=== PATIENT | female | born 1940 | race Caucasian/White ===

== ENCOUNTER 2016-12-26 18:18 | Observation (INO) ==
--- NOTE | 2016-12-26 18:39 | Emergency Department Note ---
Disposition Clinical Impression: Left-sided weakness, TIA (transient ischemic attack), Headache Disposition: Admitted As Inpatient Condition: Fair Referrals: Iliana Hall, [facility] [Primary Care Provider] - Forms: ED Satisfaction Letter Time of Disposition: 20:16 (obsv latoya) Headache HPI - General Chief Complaint: ED Dizziness Stated Complaint: Posterior headache, numbness, dizziness Time Seen by Provider: 12/26/16 18:28 Source: patient Mode of arrival: ambulatory Limitations: no limitations Nursing Notes Reviewed: Yes Vital Signs Reviewed: Yes - History of Present Illness Pt Subjective Complaint: headache Onset (ago): day(s) (3) Onset description: gradual Location: occipital Pain Severity: moderate Pain Scale: 5 Quality: aching Improves with: nothing Worsens with: none Context: occurred with exertion/activity Associated symptoms: Reports: malaise, tingling, numbness, weakness. Denies: chest pain, cough, diaphoresis, fever, nausea, vomiting, neck stiffness, photophobia, phonophobia, seizure, eye pain/redness, syncope, vision changes, SOB, confusion Treatments prior to arrival: none - Related Data Home Medications Medication Instructions Recorded Confirmed Cholecalciferol (Vitamin D3) 1,000 unit PO DAILY 02/27/16 12/26/16 [Vitamin D3] [place]-3/Dha/Epa/Fish Oil [Fish Oil 1,000 mg PO DAILY 02/27/16 12/26/16 Dr 500 mg Softgel] Ranitidine HCl [Heartburn Relief] 150 mg PO BID 02/27/16 12/26/16 Riboflavin [Vitamin B-2] 100 mg PO DAILY 02/27/16 12/26/16 Metoprolol [Lopressor] 25 mg PO DAILY 12/26/16 12/26/16 Allergies Allergy/AdvReac Type Severity Reaction Status Date / Time nitrofurantoin AdvReac Cramping Verified 12/26/16 17:23 of the Muscles pseudoephedrine AdvReac Cramping Verified 12/26/16 17:23 [From Sudafed] of the Muscles red dye AdvReac Hives Verified 12/26/16 17:23 All systems ED: reviewed and negative except as stated. Constitutional: Denies: fever, chills, weakness Eyes: Denies: eye pain ENT ED: Denies: ear pain, throat pain Cardiovascular: Denies: chest pain, palpitations, dyspnea on exertion Respiratory: Denies: cough, dyspnea, wheezes Gastrointestinal: Denies: abdominal pain, nausea, vomiting Genitourinary: Denies: urgency, dysuria, frequency Musculoskeletal: Reports: arthralgia Integumentary: Denies: rash, abrasion, lesions Neurological: Reports: headache, weakness, abnormal gait Psychiatric: Denies: anxiety Endocrine: Reports: fatigue Hematological/Lymphatic: Denies: easy bleeding Allergic/Immunologic: Denies: facial swelling Headache PMH - Past Medical History Medical history: Reports: non-contributory Female Surgical History: Reports: cholecystectomy, hysterectomy Psychiatric history: Reports: no psych history - Social History Smoking Status: Smoker, status unknown Alcohol use: Reports: none Drug use: Reports: none Physical Exam - General Limitations: no limitations General appearance: alert, in no apparent distress, other (emotional) - Head Head exam: atraumatic, normocephalic, normal inspection - Eye Eye exam: Present: normal appearance, PERRL, EOMI - ENT ENT exam: normal exam, normal oropharynx, mucous membranes moist, TM's normal bilaterally, normal external ear exam - Neck Neck exam: Present: normal inspection, full ROM, trachea midline - Chest Chest inspection: Present: normal inspection, symmetric chest wall rise - Respiratory Respiratory exam: Present: normal lung sounds bilaterally, respiratory distress - Cardiovascular Cardiovascular exam: Present: regular rate, normal rhythm, normal heart sounds - Abdominal Exam Abdominal exam: Present: soft, Non-Tender, normal bowel sounds - Extremities Exam Extremities exam: Present: normal inspection, full ROM, normal capillary refill. Absent: tenderness, joint swelling - Expanded Upper Extremity Exam Shoulder exam: Present: normal inspection, full ROM Arm exam: Present: normal inspection, full ROM Elbow exam: Present: normal inspection, full ROM Forearm/Wrist exam: Present: normal inspection, full ROM Hand exam: Present: normal inspection, full ROM Vascular exam: Normal: capillary refill, radial pulse - Expanded Lower Extremity Exam Hip/Pelvis exam: Present: normal inspection, full ROM Upper leg exam: Present: normal inspection, full ROM Knee exam: Present: normal inspection, full ROM Lower leg exam: Present: normal inspection, full ROM Ankle exam: Present: normal inspection, full ROM Foot/toe exam: Present: normal inspection, full ROM Neurovascular/Tendon exam: Present: normal capillary refill, normal fine/light touch. Absent: motor deficit, sensory deficit, tendon deficit Gait: observed and normal - Back Exam Back exam: Present: normal inspection, full ROM. Absent: muscle spasm - Neurological Exam Neurological exam: Present: alert, oriented X3, CN II-XII intact - Psychiatric Psychiatric exam: Present: normal affect, normal mood - Skin Skin exam: Present: warm, dry, intact, normal color Course Course Narrative: Seen and examined taken directly over for CAT scan upon completion of the CAT scan patient had labs and EKG done with all results having been obtained I sat and spoke with the family about the findings at this time she will stroke evidence and spoken with the radiologist shows chronic changes as result patient will be admitted transferred to [facility] stable condition Vital Signs Temperature 97 F L 12/26/16 18:23 Pulse Rate 67 12/26/16 18:23 Respiratory Rate 18 12/26/16 18:23 Blood Pressure 182/88 12/26/16 18:23 O2 Sat by Pulse Oximetry 98 12/26/16 18:23 Temperature 97 F L 12/26/16 19:18 Pulse Rate 64 12/26/16 19:18 Respiratory Rate 18 12/26/16 19:18 Blood Pressure 162/88 12/26/16 19:18 O2 Sat by Pulse Oximetry 96 12/26/16 19:18 Oxygen Delivery Oxygen Delivery Room Air Headache - MDM Narrative Medical decision making narrative: Possibility TIA versus CVA versus cardiac event - Differential Diagnosis Differential Diagnosis: Likely: headache - Medical Records Medical records reviewed: Yes I reviewed the patient's medical records. - Lab Data Lab results reviewed: Yes I reviewed the patient's lab results. Result diagrams: 12/26/16 18:59 12/26/16 18:59 Lab Results 12/26/16 12/26/16 12/26/16 Range/Units 18:59 18:59 18:59 WBC 6.9 (4.3-11.1) K/mcL RBC 4.26 (3.82-4.97) M/mcL Hgb 13.7 (11.5-15.4) g/dL Hct 39.7 (35.3-44.9) % MCV 93.2 (83.0-100.0) fL MCH 32.2 (28.0-33.3) pg MCHC 34.5 (31.6-35.5) g/dL RDW 13.2 (11.5-14.5) % Plt Count 208 (140-400) K/mcL MPV 9.8 (9.4-12.4) fL Immature Gran % 0.1 (0-4) % Seg Neutrophils % 50.7 % Lymphocytes % 41.6 % Monocytes % 5.5 % Eosinophils % 1.8 % Basophils % 0.3 % Neutrophils # 3.5 (1.6-8.9) K/mcL Lymphocytes # 2.9 (0.6-4.6) K/mcL Monocytes # 0.4 (0.0-1.3) K/mcL Eosinophils # 0.1 (0.0-0.6) K/mcL Basophils # 0.0 (0.0-0.2) K/mcL PT 11.0 (9.4-12.1) Seconds INR 1.0 APTT 30.1 (26.0-36.0) Seconds Sodium 138 (136-145) mEq/L Potassium 3.9 (3.5-4.5) mEq/L Chloride 100 (98-109) mEq/L Carbon Dioxide 27 (19-29) mEq/L BUN 13 (7-20) mg/dL Creatinine 0.80 (0.57-1.11) mg/dL Est GFR ( Amer) > 60 (> 60) Est GFR (Non-Af Amer) > 60 (> 60) BUN/Creatinine Ratio 16 (6-26) Glucose 93 (70-99) mg/dL Calculated Osmolality 286 (280-300) Calcium 10.3 (8.6-10.8) mg/dL Troponin I (0-0.03) ng/mL 12/26/16 Range/Units 18:59 WBC (4.3-11.1) K/mcL RBC (3.82-4.97) M/mcL Hgb (11.5-15.4) g/dL Hct (35.3-44.9) % MCV (83.0-100.0) fL MCH (28.0-33.3) pg MCHC (31.6-35.5) g/dL RDW (11.5-14.5) % Plt Count (140-400) K/mcL MPV (9.4-12.4) fL Immature Gran % (0-4) % Seg Neutrophils % % Lymphocytes % % Monocytes % % Eosinophils % % Basophils % % Neutrophils # (1.6-8.9) K/mcL Lymphocytes # (0.6-4.6) K/mcL Monocytes # (0.0-1.3) K/mcL Eosinophils # (0.0-0.6) K/mcL Basophils # (0.0-0.2) K/mcL PT (9.4-12.1) Seconds INR APTT (26.0-36.0) Seconds Sodium (136-145) mEq/L Potassium (3.5-4.5) mEq/L Chloride (98-109) mEq/L Carbon Dioxide (19-29) mEq/L BUN (7-20) mg/dL Creatinine (0.57-1.11) mg/dL Est GFR ( Amer) (> 60) Est GFR (Non-Af Amer) (> 60) BUN/Creatinine Ratio (6-26) Glucose (70-99) mg/dL Calculated Osmolality (280-300) Calcium (8.6-10.8) mg/dL Troponin I 0.03 (0-0.03) ng/mL - Radiology Data Radiology results reviewed: Yes I reviewed the patient's radiology results. ITS Impressions Chest X-Ray 12/26/16 18:35 IMPRESSION: No acute cardiopulmonary disease. D/ / 12/26/2016 18:56:38 Al Sanchez MD / Brianne Figueredo Interpreting Provider: Al Sanchez MD Head CT 12/26/16 18:35 IMPRESSION: No acute intracranial abnormality. D/ / 12/26/2016 18:57:49 Al Sanchez MD / Brianne Figueredo Interpreting Provider: Al Sanchez MD - EKG Data EKG attestation: Yes I reviewed and interpreted this EKG. EKG results narrative: Normal sinus rhythm rate 66 ME 174 QRS 89 QT 375 axes -15 Critical Care Time Critical Care Time: No
[2016-12-26 19:06] LABS: Basophils % 0.3 %; Eosinophils # 0.1 K/mcL (0.0-0.6); Eosinophils % 1.8 %; Hematocrit 39.7 % (35.3-44.9); Hemoglobin 13.7 g/dL (11.5-15.4); Immature Granulocytes % 0.1 % (0-4); Lymphocytes # 2.9 K/mcL (0.6-4.6); Lymphocytes % 41.6 %; Mean Corpuscular HGB Conc 34.5 g/dL (31.6-35.5); Mean Corpuscular Hemoglobin 32.2 pg (28.0-33.3); Mean Corpuscular Volume 93.2 fL (83.0-100.0); Mean Platelet Volume 9.8 fL (9.4-12.4); Monocytes # 0.4 K/mcL (0.0-1.3); Monocytes % 5.5 %; Neutrophils # 3.5 K/mcL (1.6-8.9); Platelet Count 208 K/mcL (140-400); Red Blood Count 4.26 M/mcL (3.82-4.97); Red Cell Distribution Width 13.2 % (11.5-14.5); Segmented Neutrophils % 50.7 %
[2016-12-26 19:22] LABS: Activated Partial Thrombo Time 30.1 Seconds (26.0-36.0)
[2016-12-26 19:28] LABS: BUN/Creatinine Ratio 16 (6-26); Blood Urea Nitrogen 13 mg/dL (7-20); Calcium 10.3 mg/dL (8.6-10.8); Carbon Dioxide 27 mEq/L (19-29); Chloride 100 mEq/L (98-109); Glucose 93 mg/dL (70-99); Osmolality,Calculated 286 (280-300); Potassium 3.9 mEq/L (3.5-4.5); Sodium 138 mEq/L (136-145); eGFR For African Americans > 60 (> 60); eGFR For Non-African Americans > 60 (> 60)
[2016-12-26] MEDS ORDERED: *HR* HYDROcodone/Acet 5/325 mg TABLET PO ONE (20:04)
[2016-12-26] MEDS ORDERED: 0.9 % Sodium Chloride 1,000 ML IVC SCH (21:59)
[2016-12-26] MEDS ORDERED: Naloxone 0.4 MG/ML INJ IVP PRN (21:59)
[2016-12-26] MEDS ORDERED: Ondansetron ODT 4 MG TAB.RAPDIS SL PRN (21:59)
[2016-12-26] MEDS ORDERED: Ibuprofen 400 MG TABLET PO PRN (21:59)
[2016-12-26] MEDS ORDERED: *HR* HYDROcodone/Acet 5/325 mg TABLET PO PRN (21:59)
[2016-12-26] MEDS ORDERED: Acetaminophen 325 MG TABLET PO PRN (21:59)
[2016-12-26] MEDS: Famotidine 20 MG TABLET PO SCH (23:23)
[2016-12-26 23:25] LABS: Bilirubin,Urine Negative (Negative); Blood,Urine Trace-intact (Negative); Clarity,Urine Clear (Clear); Glucose,Urine (UA) Normal (Normal); Ketones,Urine Negative (Negative); Leukocyte Esterase,Urine Trace (Negative); Nitrite,Urine Negative (Negative); Protein,Urine Negative (Neg-Trace); Urobilinogen,Urine Normal (Normal)
[2016-12-26 23:57] LABS: Color,Urine Straw (Yellow)
[2016-12-27 00:12] LABS: Bacteria,Urine Few per hpf (None-Few); RBC,Urine 0-3 per hpf (0-3); Squamous Epithelial Cell,Urine Few per lpf (None-Few); WBC,Urine 0-3 per hpf (0-3)
[2016-12-27 06:47] LABS: Basophils % 0.4 %; Eosinophils # 0.1 K/mcL (0.0-0.6); Eosinophils % 2.5 %; Hematocrit 35.4 % (35.3-44.9); Hemoglobin 12.2 g/dL (11.5-15.4); Immature Granulocytes % 0.2 % (0-4); Lymphocytes # 2.4 K/mcL (0.6-4.6); Lymphocytes % 48.3 %; Mean Corpuscular HGB Conc 34.5 g/dL (31.6-35.5); Mean Corpuscular Hemoglobin 32.4 pg (28.0-33.3); Mean Corpuscular Volume 93.9 fL (83.0-100.0); Mean Platelet Volume 9.7 fL (9.4-12.4); Monocytes # 0.3 K/mcL (0.0-1.3); Monocytes % 5.9 %; Neutrophils # 2.1 K/mcL (1.6-8.9); Platelet Count 178 K/mcL (140-400); Red Blood Count 3.77 M/mcL (3.82-4.97); Red Cell Distribution Width 13.1 % (11.5-14.5); Segmented Neutrophils % 42.7 %
[2016-12-27 07:01] LABS: Prothrombin Time 11.1 Seconds (9.4-12.1)
[2016-12-27 07:04] LABS: Activated Partial Thrombo Time 28.6 Seconds (26.0-36.0)
[2016-12-27 07:10] LABS: BUN/Creatinine Ratio 19 (6-26); Blood Urea Nitrogen 14 mg/dL (7-20); Calcium 8.8 mg/dL (8.6-10.8); Carbon Dioxide 25 mEq/L (19-29); Chloride 105 mEq/L (98-109); Chol/HDL Ratio 4.6 (0-4.9); Cholesterol 199 mg/dL (< 200); Glucose 96 mg/dL (70-99); HDL Cholesterol 43 mg/dL (40-59); LDL Cholesterol,Calculated 124 mg/dL (0-99); Magnesium 1.9 mg/dL (1.6-2.6); Osmolality,Calculated 290 (280-300); Potassium 3.8 mEq/L (3.5-4.5); Sodium 140 mEq/L (136-145); Triglycerides 159 mg/dL (< 150); eGFR For African Americans > 60 (> 60); eGFR For Non-African Americans > 60 (> 60)
[2016-12-27] MEDS ORDERED: Cholecalciferol (D-3) 1,000 UNIT TABLET PO SCH (09:00)
[2016-12-27] MEDS ORDERED: RIBOFLAVIN 100 MG PO SCH (09:00)
[2016-12-27] MEDS ORDERED: FISH OIL 500 MG PO SCH (09:00)
[2016-12-27] MEDS: Famotidine 20 MG TABLET PO SCH (09:32)
[2016-12-27 14:14] VITALS: BP 126/64
--- NOTE | 2016-12-27 15:09 | Internal Med History&Physical ---
Date of Encounter: 12/27/16 Time of Encounter: 14:30 Assessment and Plan (1) Headache Current visit: Yes Status: Acute The etiology is not obvious. She states it has resolved and she feels back to her baseline now. CT was unremarkable in emergency room. Qualifiers: Headache type: unspecified Headache chronicity pattern: acute headache Intractability: not intractable Qualified Code(s): R51 - Headache Internal Medicine - H&P: HPI Chief complaint: Headache and dizziness Admitted From: Home Plans for Post Hospital Care: Home History of present illness: Ms. Purcell is a 76 year old female who came to emergency room complaining of headache onset 2 days previously. She reports the headache was similar to when she had a CVA 2014. There was a sensation of dizziness and she experienced a single "flash" of light the evening of December 25 when the headache began. [place] there was slight increased weakness of her left leg. This persisted until the following afternoon and she decided to come to emergency room. She was evaluated and admitted to [facility] floor for ongoing care needs. She states her previous stroke in 2014 resulted in mild left leg weakness as well as left eye "droopy". She states she quit taking her daily 81 mg aspirin approximately one week ago because she felt it was making her blood "too thin". She has had no seizures or headaches. She describes what sounds to be pseudobulbar affect yesterday with uncontrolled crying but not feeling sad. She states she feels back to her baseline now and wishes to be discharged home. Past Med Surg Social Fam HX - Past Medical History Medical history: non-contributory, CVA, diabetes, GERD, hyperlipidemia, hypertension, migraine, syncope, TIA Psychiatric history: no psych history - Past Surgical History Surgical History: cholecystectomy, herniorrhaphy, hysterectomy - Social History Smoking Status: Never smoker Smokeless Tobacco Status: No Alcohol use: none Drug use: none - Family History Mother Living Status: Hx Family Cardiac Disorders: Yes Father Brother Hx Family Cardiac Disorders: Yes (heart stents) Internal Medicine - H&P: Meds Cholecalciferol (Vitamin D3) [Vitamin D3] 1,000 unit PO DAILY 02/27/16 [History] [place]-3/Dha/Epa/Fish Oil [Fish Oil Dr 500 mg Softgel] 1,000 mg PO DAILY [History] Ranitidine HCl [Heartburn Relief] 150 mg PO BID 02/27/16 [History] Riboflavin [Vitamin B-2] 100 mg PO DAILY 02/27/16 [History] Metoprolol [Lopressor] 25 mg PO DAILY 12/26/16 [History] Aspirin [Lo-Dose Aspirin EC] 81 mg PO DAILY 12/27/16 [History] Allergies nitrofurantoin Adverse Reaction (Verified 12/26/16 17:23) Cramping of the Muscles pseudoephedrine [From Sudafed] Adverse Reaction (Verified 12/26/16 17:23) Cramping of the Muscles red dye Adverse Reaction (Verified 12/26/16 17:23) Hives All Systems PM: A 10-system review of systems was performed and is negative for pertinent findings except as documented above in the HPI. Review of systems: Gen.: She states her weight has been stable the past few months Cardiovascular: She has history of hypertension. She denies MD DVT or pulmonary embolus. She states she had a heart catheter 1999 which was negative and an exercise stress test 3-4 years ago which was unremarkable. She is uncertain if she has a diagnosis of CHF. GI: She has had cholecystectomy in the past. She has GERD but denies disorders of her liver or exocrine pancreas : She denies hematuria dysuria or kidney stones Neurologic: As per history of present illness Endocrine: She was diagnosed with DM 2 approximately 1999. She states it is diet-controlled. She has hyperlipidemia. 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 - Constitutional Vitals: Temp Pulse Resp BP Pulse Ox 98.0 F 72 16 126/64 98 12/27/16 14:13 12/27/16 14:13 12/27/16 14:13 12/27/16 14:13 12/27/16 14:13 Exam: Gen.: She is well-developed well-nourished female who appears in no severe distress at present time. HEENT: Head is atraumatic normocephalic. Eyes: EOMI. There is no scleral icterus. Mouth: Mucosa is moist. Neck: Supple and nontender. There is no thyromegaly or adenopathy noted. Heart: Regular without murmurs gallops or ectopics Lungs: No wheezes or crackles are heard. Abdomen: Soft and nontender. No masses or guarding are noted. Extremities: There is no cyanosis edema or clubbing noted. Dorsalis pedis and posterior tibial pulses are 1-2 bilaterally. Neurologic: Mental status: She is talkative and a good historian. Cranial nerves: Smile is symmetric. Forehead wrinkles bilaterally. Tongue protrudes midline. EOMI. Motor: There is no pronator drift. Cerebellar: Finger to nose is intact bilaterally. Skin: Warm and dry Internal Med - H&P Results - Labs CBC & Chem 7: 12/27/16 06:30 12/27/16 06:30 Labs: Short CBC 12/27/16 Range/Units 06:30 WBC 4.9 (4.3-11.1) K/mcL Hgb 12.2 D (11.5-15.4) g/dL Hct 35.4 (35.3-44.9) % Plt Count 178 (140-400) K/mcL Neutrophils # 2.1 (1.6-8.9) K/mcL BMP 12/27/16 06:30 Sodium 140 Potassium 3.8 Chloride 105 Carbon Dioxide 25 BUN 14 Creatinine 0.74 Glucose 96 Calcium 8.8 Cardiac Enzymes 12/27/16 12/27/16 Range/Units 00:00 06:30 Troponin I 0.04 H* 0.02 (0-0.03) ng/mL Urine 12/26/16 Range/Units 22:35 Urine Color Straw (Yellow) Urine Clarity Clear (Clear) Urine pH 7.0 (5.0-8.0) pH Units Ur Specific [place] 1.010 (1.010-1.025) Urine Protein Negative (Neg-Trace) mg/dL Urine Glucose (UA) Normal (Normal) mg/dL
--- NOTE | 2016-12-27 15:20 | Discharge Summary ---
Date of Encounter: 12/27/16 Time of Encounter: 14:30 - Discharge Diagnosis (1) Headache Priority: Primary Status: Resolved Qualifiers: Headache type: unspecified Headache chronicity pattern: acute headache Intractability: not intractable Qualified Code(s): R51 - Headache - Discharge Medications Home Medications: Cholecalciferol (Vitamin D3) [Vitamin D3] 1,000 unit PO DAILY 02/27/16 [History] [place]-3/Dha/Epa/Fish Oil [Fish Oil Dr 500 mg Softgel] 1,000 mg PO DAILY [History] Ranitidine HCl [Heartburn Relief] 150 mg PO BID 02/27/16 [History] Riboflavin [Vitamin B-2] 100 mg PO DAILY 02/27/16 [History] Metoprolol [Lopressor] 25 mg PO DAILY 12/26/16 [History] Aspirin [Lo-Dose Aspirin EC] 81 mg PO DAILY 12/27/16 [History] Allergies/Adverse Reactions: Allergies nitrofurantoin Adverse Reaction (Verified 12/26/16 17:23) Cramping of the Muscles pseudoephedrine [From Sudafed] Adverse Reaction (Verified 12/26/16 17:23) Cramping of the Muscles red dye Adverse Reaction (Verified 12/26/16 17:23) Hives Date of admission: 12/26/16 20:24 Primary care physician: Iliana Hall CNP - Patient Status Disposition: Home, Self-Care Condition: Fair Overall status at discharge: patient is progressing back to baseline - Discharge Instructions Follow Up With: Iliana Hall CNP [Primary Care Provider] - 1 week - Diet and Activity Activity: resume usual activities as tolerated Diet: advance to your usual diet Hospital course: Ms. Purcell is a 76 year old female who came to emergency room complaining of headache onset 2 days previously. She reports the headache was similar to when she had a CVA 2014. There was a sensation of dizziness and she experienced a single "flash" of light the evening of December 25 when the headache began. [place] there was slight increased weakness of her left leg. This persisted until the following afternoon and she decided to come to emergency room. She was evaluated and admitted to [facility] for ongoing care needs. Initial orders were written by the emergency room physician. I saw her the afternoon on December 27 and performed the history physical and discharge. When I saw her she felt back to her baseline and wished to be discharged home which I feel is reasonable. She had been able to ambulate in the room safely without assistance. The etiology of her headache was not determined with certainty. I thought she likely had pseudobulbar affect with her inappropriate crying. I will let her PCP further address this and consider starting her on Nuedexta. She will follow with her PCP within one week - Time Spent with Patient Total time spent providing and/or coordinating discharge services: - Constitutional Vitals: Temp Pulse Resp BP Pulse Ox 98.0 F 72 16 126/64 98 12/27/16 14:13 12/27/16 14:13 12/27/16 14:13 12/27/16 14:13 12/27/16 14:13
--- NOTE | 2016-12-27 16:59 | Electrocardiograph Report ---
[place] [id number] Test Date: 2016-12-26 Pat Name: Ashley Purcell Department: [id number] Room: [facility] Gender: F [place]: : 1940 Requested By: Brigette Mcfarlane Order Number: [id number] Reading MD: Brendon Berry Measurements Intervals [place] Rate: 66 P: 52 WI: 174 QRS: -15 QRSD: 89 T: 22 QT: 375 QTc: 388 Interpretive Statements SINUS RHYTHM MODERATE VOLTAGE CRITERIA FOR LVH, CONSIDER NORMAL VARIANT Electronically Signed On 12-27-2016 16:57:24 EST by Brendon Berry
== END 2016-12-27 15:53 | disposition home or self-care (01) ==
LOC: EMEROOPIK 18:18 → INPPIK 18:18
PROVIDERS: ADMIT Internal Medicine; ATTEND Internal Medicine